=== PATIENT | female | born 1975 | race Caucasian/White ===

== ENCOUNTER 2020-06-15 09:19 | Emergency (ER) | payer MEDICAID, SELFPAY ==
[2020-06-15 09:23] VITALS: BP 157/101; PULSE 103; RESP 16; TEMP 36.4; O2SAT 95; BMI 25.4
[2020-06-15 09:43] VITALS: BP 157/100; PULSE 100; RESP 20; O2SAT 100
--- NOTE | 2020-06-15 09:51 | W.ED.HEATRA ---
HPI - Head Injury General: Chief complaint: Head Injury Stated complaint: N/V, Headache, Blurred Vision, Head/Nose Injury Time Seen by Provider: 06/15/20 09:28 History of Present Illness: HPI Narrative: 45-year-old female presents to the emergency room after she was removing some pots and pans a glass dish from cupboard the dish slid out and caught her in the glabella. She did not lose consciousness she had some localized swelling. Swelling has already gone down she is complaining today of nausea she has severe anxiety is crying. Her exam is normal there is no focal neurologic deficits noted she is awake and alert and has a normal neurologic exam. She is not on any anticoagulants. He denies any neck pain denies any other injury. MD Complaint: head pain Onset (ago): minute(s) Mechanism of Injury: other (Glass bowl slipped out of the cupboard and hit her in the glabella) Place: home Loss of Consciousness: no Location of injury: other (Glabella/lower forehead) Severity: mild Quality: aching Associated symptoms: Reports nausea and vomiting; Deny amnesia, confusion, neck pain, numbness, syncope, tingling, vertigo, visual changes or weakness Review of Systems Const: Denies: fever(s), chills, body aches, change in appetite, fatigue or malaise ENMT: Denies: throat pain, ear or mastoid pain, nasal discharge or nasal congestion Card: Denies: syncope Resp: Denies: dyspnea, productive cough or non-productive cough GI: Reports: nausea and vomiting : Denies: flank pain, difficulty voiding, dysuria, urinary frequency or urinary urgency Musc: Denies: neck pain Skin/Breast: Denies: rash or pruritus Neuro: Denies: vertigo or confusion PFS ED PFSH: Medical History Anxiety Asthma Chest pain Chronic foot pain Family history of neurofibromatosis Hypertension Insomnia Neuropathic pain Seizure (Unknown) Surgical History Hx of cholecystectomy Hx of foot surgery Hx of hysterectomy Family History Other Cancer Neurofibromatosis Social History (Reviewed 06/15/20 @ 09:55 by KYLIE Chaudhry Smoking and tobacco status: current every day smoker cigarettes Packs smoked per day: 1 Alcohol intake: former Current occupational status: disabled Physical Exam Const: GENERAL APPEARANCE: cooperative and comfortable ORIENTATION/CONSCIOUSNESS: Yes awake, Yes oriented to person, Yes oriented to place and Yes oriented to time HENMT: COMMON NORMALS: normocephalic, atraumatic, hearing grossly normal bilaterally, external ears normal, EAC's normal, TM's normal bilaterally, Normal nasal mucous membranes and turbinates present, moist oral mucous membranes and oropharynx normal HEAD & SCALP: normocephalic and atraumatic NOSE: Normal nasal mucous membranes and turbinates present EXTERNAL EAR: Yes external ears normal EXTERNAL AUDITORY CANAL: EAC's normal TYMPANIC MEMBRANE: TM's normal bilaterally OTHER: No facial swelling no abrasions no bruising no injury in the area of the deformity patient sites having been hit by the bowl. Eye: COMMON NORMALS: Equal, round and reactive pupils present, EOMs intact bilaterally, conjunctivae normal and no scleral icterus CONJUNCTIVA: Yes conjunctivae normal PUPIL: Yes Equal, round and reactive pupils present Neck/C-Spine: COMMON NORMALS: full ROM, no lymphadenopathy, supple and no JVD Lymph: LYMPHATIC: no lymphadenopathy noted and no lymphedema noted Resp: COMMON NORMALS: normal respiratory effort, No retractions, No use of accessory muscles and clear to auscultation bilaterally AUSCULTATION: clear to auscultation bilaterally Cardio: COMMON NORMALS: no JVD, regular rate, regular rhythm and No murmurs present (Cardio) RATE: regular rate RHYTHM: regular rhythm GI: COMMON NORMALS: Soft to palpation and No hepatosplenomegaly present AUSCULTATION: Yes normoactive bowel sounds PALPATION: Yes Soft to palpation, No Tenderness to palpation present (GI), No Guarding due to palpation present (GI) and Yes No hepatosplenomegaly present Extremity: COMMON NORMALS: normal to inspection, capillary refill normal, no clubbing, cyanosis or edema, no calf tenderness and no pedal edema Neuro: SENSORIUM/ORIENTATION: Yes oriented to person, Yes oriented to place and Yes oriented to time OTHER: Neurologically intact no focal neurologic deficits are noted awake and alert very tearful able to perform coordinated movements without difficulty Skin: COMMON NORMALS: no rashes or lesions noted GENERAL SKIN EXAM: no rashes or lesions noted Course Vital Signs: Vital signs: Vital Signs Temperature 97.9 F 06/15/20 11:10 Pulse Rate 82 06/15/20 11:10 Respiratory Rate 18 06/15/20 11:10 Blood Pressure 135/96 06/15/20 11:10 Pulse Oximetry 96 06/15/20 11:10 MDM - Head Injury MDM Narrative: Medical decision making narrative: CT head negative we will discharge patient home follow-up as needed Discharge Plan Discharge Patient Disposition: Home Clinical Impression: Closed head injury Condition: Stable Prescriptions: No Action alprazolam [Xanax] 1 mg tablet 1 mg PO BID PRN (Reason: panic attacks) 30 Days Qty: 30 RF: 0 gabapentin 100 mg capsule 100 mg PO TID Qty: 90 RF: 2 albuterol sulfate [Ventolin HFA] 90 mcg/actuation HFA aerosol inhaler 2 puff INHALATION Q6H PRN (Reason: shortness of breath or wheezing) Qty: 18 RF: 2 amlodipine 10 mg tablet 10 mg PO DAILY Qty: 30 RF: 5 naproxen [Naprosyn] 500 mg tablet 500 mg PO BID Qty: 60 RF: 2 quetiapine [Seroquel] 300 mg tablet 300 mg PO DAILY Qty: 30 RF: 2 multivitamin Tablet 1 tab PO DAILY RF: 0 hydrocodone-acetaminophen 7.5-325 mg tablet 1 tab PO Q6H PRN (Reason: Pain) RF: 0 cyclobenzaprine 10 mg tablet 10 mg PO BID PRN (Reason: Muscle Spasm) RF: 0 Discharge Orders: Discharge Order (Routine); Ordered 06/15/20 Ordered By: Abelardo Alejandre Activity Restrictions/Additional Instructions: Follow-up with your primary care physician regarding the gabapentin. Return to the emergency room for further problems otherwise follow-up with primary care. Expect that you will likely have headaches in next few days. You can use Tylenol or ibuprofen as needed Coding Level of Care Code ED Assembler Finger Buffs for Rodney Fwd Exam Comprehensive
--- NOTE | 2020-06-15 10:07 | CT_ITS ---
WS: [id number] CT HEAD TECHNIQUE: Noncontrast CT of the head obtained from the skullbase to the vertex. CLINICAL INFORMATION: headache/blow to the head COMPARISON: None. DLP: 733.[address] scans at [facility] use at least one of these dose optimization techniques: automat ed exposure control; mA and/or kV adjustment per patient size (includes targeted exams where dose is matched to clinical indication); or iterative reconstruction. FINDINGS: No evidence of intracranial hemorrhage or mass effect. Ventricular system and basal cisterns are moran nt.No extra-axial fluid collections. No evidence of mass or mass effect. Normal garcia-white differenti ation. Fluid in the left maxillary sinus. Fluid in the ethmoid air cells consistent with sinusitis. Mastoid air cells well aerated. CT/CT head wo con* [id number] IMPRESSION: 1. No evidence of intracranial hemorrhage or mass effect. 2. Mild ethmoid and left maxillary sinusitis 3. No acute intracranial findings. Notified Abelardo Alejandre DO at 06/15/2020 11:21 AM.
[2020-06-15 10:40] VITALS: BP 152/107; PULSE 92; RESP 18; O2SAT 96
--- NOTE | 2020-06-15 10:41 | PC.NURSE ---
Blood pressure still high. States the pain is relieved with Ofirmev. Informed Dr Alejandre
[2020-06-15 11:00] VITALS: BP 135/96; PULSE 82; RESP 18; TEMP 36.6; O2SAT 96
[2020-06-15 11:10] VITALS: BP 135/96; PULSE 82; RESP 18; TEMP 36.6; O2SAT 96
== END 2020-06-15 11:14 | disposition home or self-care (01) ==
PROVIDERS: Emergency Provider Family Medicine
DX: S09.8XXA Other specified injuries of head, initial encounter (principal); W20.8XXA Other cause of strike by thrown, projected or falling object, initial encounter; F41.9 Anxiety disorder, unspecified; F17.210 Nicotine dependence, cigarettes, uncomplicated; R11.2 Nausea with vomiting, unspecified; Z79.891 Long term (current) use of opiate analgesic; Z79.1 Long term (current) use of non-steroidal anti-inflammatories (NSAID)
CPT/HCPCS: 12345; 70450; 96374; 99283; J0131

== ENCOUNTER → 2020-08-01 10:52 | Outpatient (BNVA) | payer MEDICAID, SELFPAY | PROVIDERS: PCP Family Medicine; Referring Provider Family Medicine Adult Medicine; Visit Provider Podiatrist Foot & Ankle Surgery | DX: M79.671 Pain in right foot (principal) | CPT/HCPCS: 73630 ==

== ENCOUNTER 2020-11-21 08:45 | Outpatient (CLI) | payer BC, MEDICAID, SELFPAY ==
--- NOTE | 2020-11-21 08:51 | MM_ITS ---
WS: [id number] BILATERAL SCREENING DIGITAL MAMMOGRAM WITH CAD HISTORY: SCREENING COMPARISON: 05/07/2017 Bilateral CC and MLO views submitted. Computer aided detection analyzed. Breast composition: There are scattered areas of fibroglandular density. No suspicious masses, microc alcifications or architectural distortion. Several asymmetries in the anterior LEFT breast are stable . MM/[place] [id number] IMPRESSION: BI-RADS: 2-Benign FOLLOW UP: 1 Year Follow-up
== END 2020-11-21 08:46 | disposition home or self-care (01) ==
LOC: RADSHAW 08:49
PROVIDERS: PCP Family Medicine; Visit Provider Family Medicine
DX: Z12.31 Encounter for screening mammogram for malignant neoplasm of breast (principal)
CPT/HCPCS: 77067

== ENCOUNTER 2022-07-12 09:05 | Outpatient (CLI) | payer MEDICAID, SELFPAY ==
--- NOTE | 2022-07-12 09:20 | MM_ITS ---
WS: [id number] BILATERAL SCREENING DIGITAL TOMOSYNTHESIS MAMMOGRAM WITH CAD HISTORY: SCREENING COMPARISON: 11/21/2020, 05/07/2017 Bilateral CC and MLO views with tomosynthesis and synthetic mammography submitted. Computer aided det ection analyzed. Breast composition: There are scattered areas of fibroglandular density. No suspicious masses, microc alcifications or architectural distortion. MM/[id number] IMPRESSION: BI-RADS: 1-Negative FOLLOW UP: 1 Year Follow-up
== END 2022-07-12 09:06 | disposition home or self-care (01) ==
LOC: RAD 09:05
PROVIDERS: PCP Family Medicine; Visit Provider Family Medicine
DX: Z12.31 Encounter for screening mammogram for malignant neoplasm of breast (principal)
CPT/HCPCS: 77063; 77067

== ENCOUNTER 2022-10-12 12:46 | Outpatient (CLI) | payer MEDICAID, SELFPAY ==
--- NOTE | 2022-10-12 13:00 | USCV_ITS ---
Dejah Samuel Age: 47 Gender: F : 1975 Exam Date: 10/12/2022 13:27 Ordering Phys: Carolyn Estrada DO Technologist: An Kirk Exam Location: [facility] – [place] Indication: other chest pain BP: 127 / 89 HR: 85 Rhythm: Sinus Technical Quality: Adequate MEASUREMENTS (Male / Female) Normal Values 2D ECHO LV Diastolic Diameter PLAX 4.8 cm 4.2 - 5.9 / 3.9 - 5.3 cm LV Systolic Diameter PLAX 3.3 cm IVS Diastolic Thickness 0.7 cm 0.6 - 1.0 / 0.6 - 0.9 cm IVS Systolic Thickness 1.1 cm LVPW Diastolic Thickness 0.6 cm 0.6 - 1.0 / 0.6 - 0.9 cm LVPW Systolic Thickness 1.5 cm LVOT Diameter 2.0 cm LV Ejection Fraction 2D Teich 60.6 % LV Ejection Fraction MOD 2C 73.3 % LV Ejection Fraction 2C AL 75.4 % LA Diameter 2.4 cm LA Width 3.0 cm LA Height 3.5 cm RA Width 3.0 cm RA Height 3.3 cm Aorta at Sinotubular Diameter 2.4 cm IVC Diameter 1.3 cm M-MODE MV E Point Septal Separation 0.5 cm DOPPLER AV Peak Velocity 132.0 cm/s LVOT Peak Velocity 78.0 cm/s AV Area Cont Eq vti 1.9 cm squared AV Area Cont Eq pk 1.9 cm squared MV Peak Velocity 84.0 cm/s MV Area PHT 4.0 cm squared Mitral E to A Ratio 1.0 MV E' Velocity 42.5 cm/s Mitral E to MV E' Ratio 6.9 Mitral E to LV E' Lateral Ratio 6.0 Mitral E to LV E' Septal Ratio 8.1 TR Peak Velocity 200.7 cm/s TR Peak Gradient 16.1 mmHg Right Atrial Pressure 5.0 mmHg Pulmonary Artery Systolic Pressu 21.1 mmHg PV Peak Velocity 84.0 cm/s RV Acceleration Time 0.1 s RV Ejection Time 0.3 s RV AcT/ET 0.4 FINDINGS Left Ventricle Grade I/IV diastolic dysfunction (abnormal relaxation filling pattern), normal to mildly elevated filling pressures. Right Ventricle Normal right ventricular size and systolic function. Right Atrium The right atrium is normal in size. Left Atrium The left atrium is normal in size. Mitral Valve Trace mitral valve regurgitation. Aortic Valve No gross abnormalities noted Tricuspid Valve No gross abnormalities noted Pulmonic Valve Pulmonic valve not well visualized. Pericardium Normal pericardium without effusion. Aorta Normal ascending aorta dimension. IVC Normal inferior vena cava. CONCLUSIONS Grade I/IV diastolic dysfunction (abnormal relaxation filling pattern), normal to mildly elevated filling pressures. Normal LV size and ejection fraction of 75%. No gross wall motion abnormalities noted. Trace mitral valve regurgitation. There is no pericardial effusion. There are no intracardiac masses. No similar previous studies are available for comparison Dr Kimani Willis MD [facility] (Electronically Signed) Final Date: 16 October 2022 01:00 S
== END 2022-10-12 12:47 | disposition home or self-care (01) ==
LOC: RAD 12:48
PROVIDERS: PCP Family Medicine; Visit Provider Family Medicine
DX: R07.89 Other chest pain (principal); I34.0 Nonrheumatic mitral (valve) insufficiency
CPT/HCPCS: 93306

== ENCOUNTER 2023-01-16 09:43 | Emergency (ER) | payer MEDICAID, SELFPAY ==
[2023-01-16 09:47] VITALS: BP 182/122; PULSE 92; RESP 16; TEMP 36.5; O2SAT 97; BMI 24.7
--- NOTE | 2023-01-16 10:21 | W.ED.FEMALGU ---
HPI - Female Genitourinary General: Chief complaint: Urogenital-Female Stated complaint: kidney pain, can't urinate Time Seen by Provider: 01/16/23 09:46 Source: patient Mode of arrival: ambulatory History of Present Illness: 47-year-old female presents emergency room complaining of difficulty urinating and right flank pain she denies any fevers or chills no hematuria she has had renal stones in the past she is concerned she may have another. No vomiting no diarrhea has been very nauseous. Onset (ago): hour(s) Severity: moderate Quality of pain: cramping Consistency: constant Vaginal discharge: none Vaginal bleeding: none Exacerbating factors: none Relieving factors: none Associated symptoms: Deny abdominal pain, short of breath, fevers/chills, headache(s), nausea, rash, seizures, syncope, vaginal bleeding, vaginal discharge or weakness Treatment prior to arrival: none Review of Systems Const: Denies: fever(s), chills, body aches, change in appetite, fatigue or malaise ENMT: Denies: throat pain, ear or mastoid pain, nasal discharge or nasal congestion Card: Denies: chest pain or syncope Resp: Denies: dyspnea, productive cough or non-productive cough GI: Denies: abdominal pain or nausea : Reports: flank pain and difficulty voiding; Denies: dysuria, urinary frequency or vaginal discharge Skin/Breast: Denies: rash or pruritus Neuro: Denies: headache(s) PFS ED PFSH: Medical History Anxiety Asthma Chest pain Chronic foot pain Family history of neurofibromatosis Hypertension Insomnia Neuropathic pain Seizure (Unknown) Surgical History Hx of cholecystectomy Hx of foot surgery Hx of hysterectomy Family History Other Cancer Neurofibromatosis Social History Smoking and tobacco status: current every day smoker cigarettes Packs smoked per day: 1 Alcohol intake: former Substance/Drug Use: current Substance/Drug use frequency: Special occassions/opportunity only Current occupational status: disabled Physical Exam Const: GENERAL APPEARANCE: cooperative ORIENTATION/CONSCIOUSNESS: Yes awake, Yes oriented to person, Yes oriented to place and Yes oriented to time HENMT: COMMON NORMALS: normocephalic, atraumatic and hearing grossly normal bilaterally HEAD & SCALP: normocephalic and atraumatic Resp: COMMON NORMALS: normal respiratory effort, No retractions, No use of accessory muscles and clear to auscultation bilaterally AUSCULTATION: clear to auscultation bilaterally Cardio: COMMON NORMALS: regular rate, regular rhythm and No murmurs present (Cardio) RATE: regular rate RHYTHM: regular rhythm GI: COMMON NORMALS: Soft to palpation and No hepatosplenomegaly present AUSCULTATION: Yes normoactive bowel sounds PALPATION: Yes Soft to palpation, No Tenderness to palpation present (GI), No Guarding due to palpation present (GI) and Yes No hepatosplenomegaly present : SPECULUM EXAM - VAGINA: No vaginal bleeding OB/EXTERNAL & SPECULUM: No vaginal bleeding Extremity: COMMON NORMALS: normal to inspection, capillary refill normal, no clubbing, cyanosis or edema, no calf tenderness and no pedal edema Neuro: SENSORIUM/ORIENTATION: Yes oriented to person, Yes oriented to place and Yes oriented to time Skin: COMMON NORMALS: no rashes or lesions noted GENERAL SKIN EXAM: no rashes or lesions noted Course Vital Signs: Vital signs: Vital Signs Temperature 97.7 F 01/16/23 09:47 Pulse Rate 64 01/16/23 13:01 Respiratory Rate 14 01/16/23 13:01 Blood Pressure 148/104 01/16/23 13:01 Pulse Oximetry 96 01/16/23 13:01 Oxygen Delivery Me thod Room Air 01/16/23 12:33 [facility] - Female Medical Decision Making Improved with pain medications and fluids no sign of nephrolithiasis. Discharge patient home monitor symptoms she has worsening change symptoms return to the emergency room. Lab Data 01/16/23 08:30 01/16/23 08:30 Radiology Impressions Abdomen/Pelvis CT 01/16/23 11:12 IMPRESSION: 1. No renal obstruction or hydronephrosis. 2. Low-attenuation masses LEFT kidney. Cannot be further characterized. Consider follow-up renal ultrasound. 3. Prior cholecystectomy and hysterectomy. 4. History of prior appendectomy was provided. The appendix does appear present and normal. 5. Mildly heterogeneous liver with the 13 mm low-attenuation lesion in the RIGHT lobe. Consider follow-up ultrasound evaluation. Laboratory Results WBC 11.2 10^3/uL (4.0-10.0) H 01/16/23 08:30 RBC 4.99 10^6/uL (4.1-5.3) 01/16/23 08:30 Hgb 13.6 g/dL (11.5-15.3) 01/16/23 08:30 Hct 42.1 % (37.0-47.0) 01/16/23 08:30 MCV 84.4 fl (81-99) 01/16/23 08:30 MCH 27.3 pg (28.0-34.0) L 01/16/23 08:30 MCHC 32.3 g/dL (30.0-36.0) 01/16/23 08:30 RDW 14.6 % (12.1-15.1) 01/16/23 08:30 Plt Count 319 10^3/cmm (130-400) 01/16/23 08:30 MPV 9.2 fL (7.4-10.4) 01/16/23 08:30 Neut % (Auto) 64.3 % 01/16/23 08:30 Lymph % (Auto) 24.8 % 01/16/23 08:30 [place] % (Auto) 5.8 % 01/16/23 08:30 Eos % (Auto) 4.0 % 01/16/23 08:30 Baso % (Auto) 0.8 % 01/16/23 08:30 Neut # (Auto) 7.23 10^3/uL (1.8-7.7) 01/16/23 08:30 Lymph # (Auto) 2.8 10^3/uL (0.8-4.8) 01/16/23 08:30 [place] # (Auto) 0.7 10^3/uL (0.2-0.9) 01/16/23 08:30 Eos # (Auto) 0.5 10^3/uL (0.0-0.8) 01/16/23 08:30 Baso # (Auto) 0.1 10^3/uL (0.0-0.1) 01/16/23 08:30 Nucleated RBC % (auto) 0 % 01/16/23 08:30 Nucleated RBCs # 0.0 /100WBC 01/16/23 08:30 Sodium 140 mmol/L (136-145) 01/16/23 08:30 Potassium 4.3 mmol/L (3.5-5.1) 01/16/23 08:30 Chloride 108 mmol/L (98-107) H 01/16/23 08:30 Carbon Dioxide 23 mmol/L (22-29) 01/16/23 08:30 Anion Gap 13.3 (5-19) 01/16/23 08:30 BUN 11 mg/dL (6-20) 01/16/23 08:30 Creatinine 0.4 mg/dL (0.5-0.9) L 01/16/23 08:30 GFR Calculation 171.8 mL/min (90-130) H 01/16/23 08:30 Glucose 100 mg/dL (65-115) 01/16/23 08:30 Calculated Osmolality 289 mOsm/kg (285-295) 01/16/23 08:30 Calcium 9.3 mg/dL (8.5-10.5) 01/16/23 08:30 Total Bilirubin 0.2 mg/dL (0.15-1.2) 01/16/23 08:30 AST 13 U/L (0-32) 01/16/23 08:30 ALT 7 U/L (0-33) 01/16/23 08:30 Alkaline Phosphatase 113 U/L (35-105) H 01/16/23 08:30 Total Protein 6.9 g/dL (6.6-8.7) 01/16/23 08:30 Albumin 4.0 g/dL (3.5-5.2) 01/16/23 08:30 Globulin 2.9 g/dL (1.3-4.6) 01/16/23 08:30 Urine Color Yellow (Yellow) 01/16/23 10:30 Urine Appearance Sl hazy (CLEAR) A 01/16/23 10:30 Urine pH 5 (5-7) 01/16/23 10:30 Ur Specific [place] 1.025 (1.005-1.030) 01/16/23 10:30 Urine Protein Neg (Negative) 01/16/23 10:30 Urine Glucose (UA) Norm (Normal) 01/16/23 10:30 Urine Ketones Negative (Negative) 01/16/23 10:30 Urine Blood 2+ (Negative) H 01/16/23 10:30 Urine Nitrate Negative (Negative) 01/16/23 10:30 Urine Bilirubin Neg (Negative) 01/16/23 10:30 Urine Urobilinogen Norm mg/dL (Negative) 01/16/23 10:30 Ur Leukocyte Esterase Negative (Negative) 01/16/23 10:30 Urine RBC 0-4 /hpf (0-2) H 01/16/23 10:30 Urine WBC 0-4 /hpf (0-5) H 01/16/23 10:30 Ur Squamous Epith Cells 5-10 /hpf (0-5) H 01/16/23 10:30 Amorphous Sediment Not Reportable 01/16/23 10:30 Urine Bacteria 1+ /hpf (NONE) H 01/16/23 10:30 Urine Mucus None /hpf 01/16/23 10:30 Discharge Plan Discharge Patient Disposition: Home Clinical Impression: Acute flank pain Condition: Stable Prescriptions: No Action hydrocodone-acetaminophen [[place]] 7.5-325 mg tablet 1 tab PO BID PRN (DME) cane See Rx Instructions .Route .MEDSUPPLY Qty: 1 0RF Rx Instructions: As directed albuterol sulfate [Ventolin HFA] 90 mcg/actuation HFA aerosol inhaler 2 puff INHALATION Q6H PRN (Reason: shortness of breath or wheezing) Qty: 18 2RF amlodipine 10 mg tablet 10 mg PO DAILY Qty: 30 5RF Rx Instructions: pt states she hasnt taken this since february-rx filled on 05/25/2020 pt states she picked the medication up but isnt taking it naproxen [Naprosyn] 500 mg tablet 500 mg PO BID Qty: 60 2RF quetiapine [Seroquel] 300 mg tablet 300 mg PO DAILY Qty: 30 2RF (DME) Sole Supports See Rx Instructions .Route .MEDSUPPLY Qty: 1 0RF Rx Instructions: As directed. (DME) custom orthotic See Rx Instructions .Route .MEDSUPPLY Qty: 1 0RF Rx Instructions: As directed (DME) Custom insoles See Rx Instructions .Route .MEDSUPPLY Qty: 1 0RF Rx Instructions: functional orthotic with high medial flang and deep heel cup, custom made by [employer] Tablet 1 tab PO DAILY cyclobenzaprine 10 mg tablet 10 mg PO BID PRN (Reason: Muscle Spasm) Discharge Orders: Discharge ED (Routine); Ordered 01/16/23 Ordered By: Abelardo Alejandre Referrals: Carolyn Estrada DO [Primary Care Provider] - Discharge Diet: Usual diet Discharge Activity: Increase activity as tolerated Patient Instructions: Opioid Safety, Pain Management Activity Restrictions/Additional Instructions: Case management make arrangements for ultrasound of the abdomen as an outpatient follow-up with your primary care doctor clinical diet for the next 2 days follow-up as needed you can use Tylenol ibuprofen for discomfort. Coding Level of Care Code ED Food Cooking Machine Operator for Rodney Fernandes
[2023-01-16 10:40] LABS: Basophils # 0.1 10^3/uL (0.0-0.1); Basophils % 0.8 %; Eosinophils # 0.5 10^3/uL (0.0-0.8); Hematocrit 42.1 % (37.0-47.0); Hemoglobin 13.6 g/dL (11.5-15.3); Lymphocytes # 2.8 10^3/uL (0.8-4.8); Lymphocytes % 24.8 %; Mean Corpuscular HGB Conc 32.3 g/dL (30.0-36.0); Mean Corpuscular Hemoglobin 27.3 pg (28.0-34.0); Mean Corpuscular Volume 84.4 fl (81-99); Mean Platelet Volume 9.2 fL (7.4-10.4); Monocytes # 0.7 10^3/uL (0.2-0.9); Monocytes % 5.8 %; Neutrophils # 7.23 10^3/uL (1.8-7.7); Neutrophils % 64.3 %; Nucleated Red Blood Cells % 0 %; Platelet Count 319 10^3/cmm (130-400); Red Blood Count 4.99 10^6/uL (4.1-5.3); Red Cell Distribution Width 14.6 % (12.1-15.1); White Blood Count 11.2 10^3/uL (4.0-10.0)
[2023-01-16] MEDS: sodium chloride 0.9% 1,000 ML 999 ML IV (10:51)
[2023-01-16 10:52] VITALS: RESP 14; O2SAT 96
[2023-01-16] MEDS: ondansetron 2 mg/ML SDV 2 mL 4 MG IVP (10:52)
[2023-01-16] MEDS: morphine 4 mg/mL SDV 1 mL IVP (10:52)
[2023-01-16 10:58] VITALS: BP 154/102; PULSE 79; RESP 14; O2SAT 95
[2023-01-16 11:00] LABS: Urine Appearance SL Hazy (CLEAR); Urine Color Yellow (Yellow); pH Urine 5 (5-7)
[2023-01-16 11:01] LABS: Add Urine Microscopic? YES; Bilirubin Urine Neg (Negative); Blood Urine 2+ (Negative); Glucose Urine UA Norm (Normal); Ketones Urine Negative (Negative); Leukocyte Esterase Urine Negative (Negative); Nitrate Urine Negative (Negative); Protein Urine Neg (Negative); Specific Gravity, Urine 1.025 (1.005-1.030); Urobilinogen Urine Norm (Negative)
[2023-01-16 11:03] LABS: Alanine Aminotransferase 7 U/L (0-33); Alkaline Phosphatase 113 U/L (35-105); Anion Gap 13.3 (5-19); Aspartate Amino Transferase 13 U/L (0-32); Blood Urea Nitrogen 11 mg/dL (6-20); Calcium 9.3 mg/dL (8.5-10.5); Carbon Dioxide 23 mmol/L (22-29); Chloride 108 mmol/L (98-107); Globulin 2.9 g/dL (1.3-4.6); Glomerular Filtration Rate 171.8 mL/min (90-130); Glucose 100 mg/dL (65-115); Osmolality Calculated 289 mOsm/kg (285-295); Potassium 4.3 mmol/L (3.5-5.1); Sodium 140 mmol/L (136-145); Total Bilirubin 0.2 mg/dL (0.15-1.2); Total Protein 6.9 g/dL (6.6-8.7)
--- NOTE | 2023-01-16 11:12 | CT_ITS ---
WS: [id number] CT ABDOMEN AND PELVIS NONCONTRAST HISTORY: flank pain TECHNIQUE: Imaging performed through the abdomen and pelvis. Coronal and sagittal reformats are submi tted. All CT scans at [facility] use at least one of these dose optimization techniques: auto mated exposure control; mA and/or kV adjustment per patient size (includes targeted exams where dose is matched to clinical indication); or iterative reconstruction. DLP: 453.36 mGy.cm COMPARISON: None available. Lower thorax: Lung bases are clear. Visualized heart is normal. No hiatal hernia. Liver: Normal size liver. Very minimal density throughout the liver on this unenhanced exam. Low-atte nuation 13 mm nodule inferior RIGHT lobe of the liver. Gallbladder: Prior cholecystectomy. Pancreas: Normal size and attenuation. Normal pancreatic duct. No pancreatitis or mass. Spleen: Normal. Adrenal glands: Normal. No mass. Right kidney: Normal size kidney with no mass or hydronephrosis. Left kidney: Normal size kidney. There are several low-attenuation masses within the cortex. These ma y be cysts. Cannot be further characterized by unenhanced CT. The largest measures 1.9 cm. No renal o bstruction. Aorta: Mild atherosclerosis abdominal aorta with no aneurysm. No free fluid, intraperitoneal air or significant lymphadenopathy. GI tract: Normal noncontrast imaging of the stomach, small bowel and colon. No obstruction or wall th ickening. History of prior appendectomy. The appendix does appear to be present. Abdominal wall: Negative. No hernia. Pelvis: Prior hysterectomy. Osseous structures: Unremarkable. CT/CT kidney stone [id number] IMPRESSION: 1. No renal obstruction or hydronephrosis. 2. Low-attenuation masses LEFT kidney. Cannot be further characterized. Consid er follow-up renal ultrasound. 3. Prior cholecystectomy and hysterectomy. 4. History of prior appendectomy was provided. The appendix does appear presen t and normal. 5. Mildly heterogeneous liver with the 13 mm low-attenuation lesion in the RIG HT lobe. Consider follow-up ultrasound evaluation.
[2023-01-16 11:13] LABS: Add Urine Culture? No; Bacteria Urine 1+ /hpf; RBC Urine 0-4 /hpf (0-2); WBC Urine 0-4 /hpf (0-5)
[2023-01-16 12:33] VITALS: BP 148/104; PULSE 64; RESP 14; O2SAT 96
[2023-01-16 13:01] VITALS: BP 148/104; PULSE 64; RESP 14; O2SAT 96
== END 2023-01-16 13:11 | disposition home or self-care (01) ==
PROVIDERS: Emergency Provider Family Medicine; PCP Family Medicine
DX: R10.9 Unspecified abdominal pain (principal); Z90.49 Acquired absence of other specified parts of digestive tract; Z90.710 Acquired absence of both cervix and uterus
CPT/HCPCS: 74176; 80053; 81001; 85025; 96374; 96375; 99285; J2270; J2405; J7030

== ENCOUNTER → 2023-06-06 08:06 | Outpatient (BNVA) | payer MEDICAID, SELFPAY | PROVIDERS: PCP Family Medicine; Referring Provider Family Medicine; Visit Provider Podiatrist Foot & Ankle Surgery | DX: Q66.72 Congenital pes cavus, left foot; M25.372 Other instability, left ankle; M79.671 Pain in right foot; M79.672 Pain in left foot | CPT/HCPCS: 73630; 99203 ==

== ENCOUNTER 2023-07-19 21:48 | Emergency (ER) | payer MEDICAID, SELFPAY ==
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
[2023-07-19 21:54] VITALS: BP 136/103; PULSE 103; RESP 20; TEMP 36.4; O2SAT 96
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
--- NOTE | 2023-07-19 22:17 | PC.NURSE ---
C-collar removed per MD order.
[2023-07-19 22:51] VITALS: PULSE 88; RESP 18; O2SAT 97
== END 2023-07-19 22:51 | disposition home or self-care (01) ==
PROVIDERS: Emergency Provider Internal Medicine; PCP Family Medicine
DX: S16.1XXA Strain of muscle, fascia and tendon at neck level, initial encounter (principal); F17.210 Nicotine dependence, cigarettes, uncomplicated; I10 Essential (primary) hypertension; V50.5XXA Driver of pick-up truck or van injured in collision with pedestrian or animal in traffic accident, initial encounter
CPT/HCPCS: 72040; 72072; 99284

== ENCOUNTER 2024-12-09 09:07 | Outpatient (CLI) | payer MEDICAID, SELFPAY ==
--- NOTE | 2024-12-09 09:12 | MM_ITS ---
WS: [id number] BILATERAL SCREENING DIGITAL TOMOSYNTHESIS MAMMOGRAM WITH CAD HISTORY: SCREENING COMPARISON: 07/12/2022, 11/21/2020 Bilateral CC and MLO views with tomosynthesis and synthetic mammography submitted. Computer aided detection analyzed. Breast composition: There are scattered areas of fibroglandular density. No suspicious masses, microcalcifications or architectural distortion. MM/MM scr BI tomosynthesis [id number] IMPRESSION: BI-RADS: 2 - Benign. FOLLOW UP: 1 Year Follow-up
== END 2024-12-09 09:08 | disposition home or self-care (01) ==
LOC: RAD 09:08
PROVIDERS: PCP Family Medicine; Visit Provider Family Medicine
DX: Z12.31 Encounter for screening mammogram for malignant neoplasm of breast (principal); R92.323 Mammographic fibroglandular density, bilateral breasts
CPT/HCPCS: 77063; 77067

== ENCOUNTER 2025-03-31 09:57 | Outpatient (CLI) | payer MEDICAID, SELFPAY ==
[2025-03-31 10:46] LABS: Hematocrit 43.1 % (36-47); Hemoglobin 13.90 g/dL (11.27-16.99); Mean Corpuscular HGB Conc 32.3 g/dL (30-55); Mean Corpuscular Hemoglobin 27.5 pg (27-33); Mean Corpuscular Volume 85.3 fl (85-98); Nucleated Red Blood Cells % 0 %; Platelet Count 340 10^3/cmm (157-399); Red Blood Count 5.05 10^6/uL (3.85-5.65); White Blood Count 14.73 10^3/uL (3.29-11.43)
[2025-03-31 11:14] LABS: Creatinine Urine, Random 154 mg/dL (28-217); Microalbum Creatinine Ratio Ur 19 mg/dL (0-20)
[2025-03-31 11:17] LABS: Alanine Aminotransferase 8 U/L (0-33); Albumin Level 3.9 g/dL (3.5-5.2); Alkaline Phosphatase 139 U/L (35-105); Anion Gap 16.1 (5-19); Aspartate Amino Transferase 15 U/L (0-32); Blood Urea Nitrogen 8 mg/dL (6-20); Calcium 9.0 mg/dL (8.5-10.5); Carbon Dioxide 21 mmol/L (22-29); Chloride 106 mmol/L (98-107); Cholesterol 225 mg/dL (0-200); Globulin 3.5 g/dL (1.3-4.6); Glucose 86 mg/dL (65-115); HDL Cholesterol 51 mg/dL (60-100); Osmolality Calculated 286 mOsm/kg (285-295); Potassium 4.1 mmol/L (3.5-5.1); Sodium 139 mmol/L (136-145); Thyroid Stimulating Hormone 0.82 uIU/mL (0.27-4.20); Total Protein 7.4 g/dL (6.6-8.7); Triglycerides 98 mg/dL (0-150)
== END 2025-03-31 09:58 | disposition home or self-care (01) ==
PROVIDERS: PCP Family Medicine; Visit Provider Family Medicine
DX: I10 Essential (primary) hypertension (principal)
CPT/HCPCS: 36415; 80053; 80061; 82044; 84443; 85025

== ENCOUNTER → 2025-04-21 11:14 | Outpatient (BNVA) | payer MEDICAID, SELFPAY | PROVIDERS: PCP Family Medicine; Visit Provider Surgery | DX: R19.7 Diarrhea, unspecified (principal) | CPT/HCPCS: 99203 ==

== ENCOUNTER 2025-05-10 14:06 | Outpatient (CLI) | payer MEDICAID, SELFPAY ==
--- NOTE | 2025-05-10 15:15 | CT_ITS ---
WS: [id number] CT ABDOMEN AND PELVIS WITH CONTRAST HISTORY: Chronic abd pain, history of uterine cancer. TECHNIQUE: Imaging performed of the abdomen and pelvis with IV contrast. Single phase imaging of the abdomen. Coronal and sagittal reformats are submitted. All CT scans at [facility] use at least one of these dose optimization techniques: automated exposure control; mA and/or kV adjustment per patient size (includes targeted exams where dose is matched to clinical indication); or iterative reconstruction. IV CONTRAST: Omnipaque 350; 100 mL IV. Oral contrast: Yes. DLP: 347.39 mGy.cm COMPARISON: 01/16/2023 Lower thorax: Lung bases are clear. Heart is normal size. Small hiatal hernia. Liver/biliary system: Normal size liver. There are several areas in the liver of decreased attenuation. Ill-defined area in the superior liver measures 1.1 cm. This is an ill-defined nodule and was probably present on the prior study from 2022 suggesting that it is probably benign. There is one additional very small low-attenuation nodule. Gallbladder: Prior cholecystectomy. Pancreas: Normal size pancreas and pancreatic duct. No adjacent inflammation. Spleen: Normal size spleen. No mass or infarct. Adrenal glands: Normal. Right kidney: Normal size kidney with no obstruction. There are numerous low- attenuation cortical nodules which are probably cysts. Some of these are too small to characterize. No obvious solid mass or obstruction. Left kidney: Normal size kidney with no obstruction. Numerous low-attenuation cortical masses are identified. Some of these are too small to characterize. No obstruction of the kidney. Aorta: Mild atherosclerosis with no aneurysm. Lymphadenopathy: None. Free fluid: None. GI tract: Stomach is overly distended with oral contrast and food debris. No small bowel obstruction. The appendix is not identified. There is no evidence for colitis. No GI tract obstruction. No significant diverticular disease. Abdominal wall: Unremarkable abdominal wall. No hernia. Pelvis: No free fluid or adenopathy within the pelvis. Prior hysterectomy. Bones: 2 mm anterolisthesis of L5. No fractures. CT/CT abdomen pelvis w con* [id number] IMPRESSION: 1. Status post hysterectomy and cholecystectomy. 2. Low-attenuation lesions in the liver. These were also present on 01/16/[address] If further evaluation is necessary ultrasound may provide addit ional information or MRI liver with and without contrast. 3. Bilateral cortical renal cyst and additional too small to characterize hypo densities. No renal obstruction. 4. No GI tract obstruction or colitis. 5. No ascites or adenopathy.
[2025-05-10] MEDS: iohexol 350 mg/mL 500 mL Btl (per mL) PO (15:43)
[2025-05-10] MEDS: iohexol 350 mg/mL 500 mL Btl (per mL) IV (15:45)
== END 2025-05-10 14:07 | disposition home or self-care (01) ==
LOC: RAD 14:07
PROVIDERS: PCP Family Medicine; Visit Provider Surgery
DX: K31.89 Other diseases of stomach and duodenum (principal); K44.9 Diaphragmatic hernia without obstruction or gangrene; K76.89 Other specified diseases of liver; Z90.49 Acquired absence of other specified parts of digestive tract; N28.89 Other specified disorders of kidney and ureter; Z90.710 Acquired absence of both cervix and uterus
CPT/HCPCS: 74177

== ENCOUNTER → 2025-05-19 15:15 | Outpatient (BNVA) | payer MEDICAID, SELFPAY | PROVIDERS: PCP Family Medicine; Visit Provider Surgery | DX: Z09 Encounter for follow-up examination after completed treatment for conditions other than malignant neoplasm (principal) | CPT/HCPCS: 99213 ==